=== PATIENT | female | born 1975 | race Caucasian/White ===

== ENCOUNTER 2023-04-29 13:10 | Emergency (ER) | payer OTHER ==
[~2023-04-29] VITALS: Ht 165.1 cm; Wt 88.0 kg
[~2023-04-29 13:10] MED LIST: LAMICTAL100 MG PO; PRILOSEC OTC20 MG PO; SERTRALINE HCL150 MG PO; ZITHROMAX250 MG PO
--- OUTSIDE RECORDS SUMMARY | 2023-04-29 13:18 | XMS ---
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 [place] has no Care Guidelines for this patient. [place] VIS[facility] COUNT (12 MO.) [facility] T[facility] 2 NOTE: Visits indicate total known visits. 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
[2023-04-29 13:28] LABS: BASOPHILS 0.6 % (0-2); EOSINOPHILS 0.5 % (0-6); HEMATOCRIT 41.3 % (35.0-50.0); LYMPHOCYTES 44.2 % (24-44); MCH 29.5 (27-36); MCHC 33.9 g/dl (30-36); MCV 86.8 fl (81-99); MONOCYTES 6.4 % (0-12); NEUTROPHILS 48.3 % (39-80); PLATELET COUNT 275 K/uL (140-440); RBC 4.76 M/ul (4.3-5.7); RDW 13.5 (10.5-15.0)
[2023-04-29 13:46] LABS: ALBUMIN 3.3 g/dL (3.4-5.0); ALBUMIN/GLOBULIN RATIO 1.03 (1.1-2.4); ALKALINE PHOSPHATASE 56 U/L (46-116); ALT (SGPT) 32 U/L (14-59); ANION GAP 12.8 (7-21); AST (SGOT) 15 U/L (15-37); BILIRUBIN, TOTAL 0.3 ng/dL (0.2-1.0); BUN/CREATININE RATIO 20.58 (6.0-28.6); CALCIUM 8.6 mg/dL (8.5-10.1); CARBON DIOXIDE 26 mmol/L (21-32); CHLORIDE 106 mmol/L (98-107); CREATININE, SERUM 0.68 mg/dL (0.55-1.02); GLOMERULAR FILTRATION RATE,EST 108 mL/min (>60); MAGNESIUM 1.6 mg/dL (1.8-2.4); POTASSIUM 3.8 mmol/L (3.5-5.1); PROTEIN, TOTAL 6.5 g/dL (6.4-8.2); UREA NITROGEN 14 mg/dL (7-18)
[2023-04-29] MEDS ORDERED: PREDNISONE20 MG PO (15:24)
[2023-04-29 15:33] VITALS: BP 135/79
--- NOTE | 2023-04-29 22:12 | EKG ---
[facility] [address] [facility] [place] [address] Signed Normal sinus rhythm Normal ECG No previous ECGs available Confirmed by Ashlyn Randall MD () on 04/29/2023 10:12:16 PM Electronically Signed By: ASHLYN RANDALL MD 04/29/232211 PATIENT NAME: DWIGHT LEE Electrocardiogram DATE OF : 75 PHYSICIAN: ASHLYN RANDALL MD REPORT #: [id number] REPORT IS CONFIDENTIAL AND NOT TO BE RELEASED WITHOUT AUTHORIZATION
== END 2023-04-29 15:31 | disposition home or self-care (01) ==
LOC: ED 13:10
PROVIDERS: Emergency Medicine
DX: J40 Bronchitis, not specified as acute or chronic (principal); R07.81 Pleurodynia; Z79.899 Other long term (current) drug therapy
CPT/HCPCS: 36415; 71045; 80053; 83735; 84484; 85025; 85379; 93005; 93010; A9270; J1885; J7512